=== PATIENT | male | born 1955 | race Caucasian/White ===

== ENCOUNTER → 2017-03-31 | Outpatient (CLI) | payer BC ==
[~2017-03-31] MED LIST: CELADRIN PO; CEPHALEXIN500 M1 PO; COLACE 100100 MG/CAP PO; NO HOME MEDICATIONS; NORCO 325 MG-51 TAB PO; PERCOCET 325 MG1 TA2 PO; PYRIDIUM 100MG100 MG PO; RAPAFLO4 MG PO; VITAMIN D 400400 IU PO; ZINC10 M1 PO
== END ==
LOC: COL.VAS 14:51
DX: M79.89 Other specified soft tissue disorders (principal)

== ENCOUNTER 2018-08-11 08:30 | Day surgery (SDC) | payer BC ==
[~2018-08-11] VITALS: Ht 182.9 cm; Wt 90.9 kg
[2018-08-11 09:05] VITALS: BP 163/82; PULSE 43; TEMP 97.2
[2018-08-11] MEDS ORDERED: ALTACE 10MG TAB10 MG PO (09:10)
--- NOTE | 2018-08-11 09:18 | NUR ---
AT BEDSIDE CALL LIGHT IN REACH
--- NOTE | 2018-08-11 09:25 | NUR ---
PATIENT TAKEN TO ENDO
[2018-08-11 10:20] VITALS: BP 130/81; PULSE 43; TEMP 97.6
--- NOTE | 2018-08-11 10:20 | NUR ---
TO RM 6 FROM ENDOSCOPY. ALERT ORIENTED X3, TALKING TO STAFF AND . DR PRINCE INTO TALK WITH PATIENT AND HIS . DENIES PAIN OR DISCOMFORT
[2018-08-11 10:35] VITALS: BP 149/82; PULSE 41
--- NOTE | 2018-08-11 10:35 | NUR ---
RECEIVED PEPSI AND ANNA. PUDDING. SITTING UP TALKING TO . HEART RATE 37-42. PATIENT STATED THAT HAS BEEN NORMAL FOR HIM SINCE THE HEART ABLATION.
[2018-08-11 10:50] VITALS: BP 139/81; PULSE 42
--- NOTE | 2018-08-11 10:50 | NUR ---
RECEIVED 2ND PEPSI
--- NOTE | 2018-08-11 11:00 | NUR ---
RECEIVED DISCHARGE INSTRUCTIONS AND VERBALIZED UNDERSTANDING
--- NOTE | 2018-08-11 11:10 | NUR ---
DISCHARGED PER WC BY NURSING STAFF TO PRIVATE CAR IN CARE OF .
== END 2018-08-11 11:15 | disposition home or self-care (01) ==
LOC: SDCO 08:30
DX: Z12.11 Encounter for screening for malignant neoplasm of colon (principal); K64.0 First degree hemorrhoids; K62.89 Other specified diseases of anus and rectum; K57.30 Diverticulosis of large intestine without perforation or abscess without bleeding; I10 Essential (primary) hypertension; Z79.899 Other long term (current) drug therapy
CPT/HCPCS: J2250; J3010; J7030